=== PATIENT | male | born 1935 | race Caucasian/White ===

== ENCOUNTER 2019-12-08 11:24 | Emergency (ER) | payer MEDICARE, OTHER ==
[2019-12-08 12:05] VITALS: BP 131/72; PULSE 58
[2019-12-08] MEDS ORDERED: Iopamidol 612 MG/ML 100 ML Bottle IVPUSH ONE (12:54)
--- NOTE | 2019-12-08 13:41 | EDM.PDOC ---
ED HPI GENERAL MEDICAL PROBLEM - General Chief Complaint: Eye Problems Stated Complaint: INFECTION OR ALLERGIC REACTION Time Seen by Provider: 12/08/19 13:39 Source of Information: Reports: Patient, RN, RN Notes Reviewed History Limitations: Reports: No Limitations - History of Present Illness INITIAL COMMENTS - FREE TEXT/NARRATIVE: Patient presents to the ED via personal vehicle with complaints of left eye swelling. Per the patient the swelling was present when he woke up on Friday12/06/19; he did not go to bed with the swelling. He was seen in clinic by Dr. Quinonez last Friday12/06/19 and was instructed to take Benadryl and follow up with his take away attendant. He attest to seeing his take away attendant today 12/08/19, who instructed him to come to the ED today for possible ocular cellulitis. The patient states the swelling to his eye has progressively worsened since Friday morning to the point he is unable to see out of the eye. He does attest to yellow drainage from the eye. He denies pain to the area. He denies nasal or ear pain/drainage/pressure. Other than the aforementioned Benadryl he has not taken any medications for this problem. - Related Data Allergies Allergy/AdvReac Type Severity Reaction Status Date / Time No Known Allergies Allergy Verified 03/15/15 11:07 Home Meds: Home Meds Acetaminophen [Mapap] 2 tab PO Q6H PRN 03/02/15 [History] Aspirin [Halfprin] 1 tab PO DAILY 03/02/15 [History] Clobetasol Propionate/Emoll [Temovate Emollient 0.05%] 1 applic TOP DAILY 03/02/15 [History] Ergocalciferol (Vitamin D2) [Vitamin D2] 1 cap PO ASDIRECTED 03/02/15 [History] Propranolol [Inderal] 1 tab PO DAILY 03/02/15 [History] Past Medical History HEENT History: Reports: Cataract, Impaired Vision, Other (See Below) Other HEENT History: NASAL SEPTAL DEVIATION; TINNITUS Cardiovascular History: Reports: CAD, Hypertension, PVD Gastrointestinal History: Reports: Diverticulosis, Hemorrhoids, Other (See Below) Other Gastrointestinal History: VENTRAL HERNIA Genitourinary History: Reports: BPH Musculoskeletal History: Reports: Back Pain, Chronic, Fibromyalgia, Gout, Other (See Below) Other Musculoskeletal History: DEGENERATIVE JOINT DISEASE Neurological History: Reports: None Psychiatric History: Reports: Anxiety Endocrine/Metabolic History: Reports: Vitamin D Deficiency Hematologic History: Reports: Other (See Below) Other Hematologic History: HYPERURICEMIA Immunologic History: Reports: None Oncologic (Cancer) History: Reports: None Dermatologic History: Reports: Other (See Below) Other Dermatologic History: KERATOTIC SKIN LESIONS - Past Surgical History HEENT Surgical History: Reports: Cataract Surgery, Eye Surgery GI Surgical History: Reports: Colonoscopy, EGD, Hernia, Inguinal Dermatological Surgical History: Reports: Other (See Below) ED ROS GENERAL - Review of Systems Review Of Systems: Comprehensive ROS is negative, except as noted in HPI. ED EXAM GENERAL W FULL EYE - Physical Exam Exam: See Below Exam Limited By: No Limitations General Appearance: Alert, WD/WN, No Apparent Distress Eye Exam: Left Eye: EOMI (SONA left d/t swelling), Normal Inspection (SONA left d/t swelling), Periorbital Changes (Significant swelling and edema), PERRL (SONA left d/t swelling) Eyelids: Right: Normal Appearance, Left: Edema, Erythema Conjunctiva & Sclera: Left: Other (SONA to swelling) Cornea Exam: Left: Other (SONA d/t swelling) Pupillary Size: Right: 3 mm Pupillary Reaction: Right: Brisk Ears: Normal External Exam, Normal Canal, Hearing Grossly Normal, Normal TMs Nose: Normal Inspection, Normal Mucosa, No Blood Neurological: Alert, Oriented, CN II-XII Intact Skin Exam: Warm, Dry, Intact, Normal Color, No Rash Course - Vital Signs Last Recorded V/S: Last Vital Signs Temp 98.5 F 12/08/19 12:03 Pulse 58 L 12/08/19 12:03 Resp 18 12/08/19 12:03 BP 131/72 12/08/19 12:03 Pulse Ox 100 12/08/19 12:03 - Orders/Labs/Meds Orders: Active Orders 24 hr Category Date Time Status CULTURE BLOOD [BC] Stat Lab 12/08/19 13:10 Received Labs: Laboratory Tests 12/08/19 12/08/19 12/08/19 Range/Units 13:10 13:10 13:10 WBC 9.6 (5.0-10.0) 10^3/uL RBC 3.97 L (4.6-6.2) 10^6/uL Hgb 12.8 L (14.0-18.0) g/dL Hct 38.5 L (40.0-54.0) % MCV 97.0 (80-100) fL MCH 32.2 (27.0-34.0) pg MCHC 33.2 (33.0-35.0) g/dL Plt Count 163 (150-450) 10^3/uL Neut % (Auto) 62.3 (42.2-75.2) % Lymph % (Auto) 13.9 L (20.5-50.1) % [place] % (Auto) 18.5 H (2-8) % Eos % (Auto) 5.2 H (1.0-3.0) % Baso % (Auto) 0.1 (0.0-1.0) % Sodium 140 (136-145) mmol/L Potassium 4.4 (3.5-5.1) mmol/L Chloride 105 (98-107) mmol/L Carbon Dioxide 28 (21-32) mmol/L Anion Gap 11.4 (7-13) mEq/L BUN 17 (7-18) mg/dL Creatinine 0.86 (0.70-1.30) mg/dL Est Cr Clr Drug Dosing 60.76 mL/min Estimated GFR (MDRD) > 60 BUN/Creatinine Ratio 19.8 (No establ ref range) Glucose 87 (74-99) mg/dL Lactic Acid 1.3 (0.4-2.0) mmol/L Calcium 8.5 (8.5-10.1) mg/dL Total Bilirubin 0.9 (0.2-1.0) mg/dL AST 18 (15-37) U/L ALT 18 (16-63) U/L Alkaline Phosphatase 68 (46-116) U/L Total Protein 6.3 L (6.4-8.2) g/dL Albumin 3.3 L (3.4-5.0) g/dL Globulin 3.0 Albumin/Globulin Ratio 1.10 Meds: Medications Discontinued Medications Generic Name Dose Route Start Last Admin Trade Name Freq PRN Reason Stop Dose Admin Ceftriaxone Sodium 1 gm 12/08/19 14:54 12/08/19 15:31 Rocephin IM 12/08/19 14:55 1 gm ONETIME ONE Administration Iopamidol 100 ml 12/08/19 12:54 12/08/19 14:13 Isovue-300 (61%) IVPUSH 12/08/19 12:55 100 ml ONETIME ONE Administration Lidocaine HCl Confirm 12/08/19 15:09 12/08/19 15:31 Xylocaine-Mpf 1% Administered 12/08/19 15:10 30 ml Dose Administration 30 ml .ROUTE .STK-MED ONE Lidocaine HCl 30 ml 12/08/19 15:18 12/08/19 15:32 Xylocaine-Mpf 1% INJECT 12/08/19 15:19 Not Given ONETIME ONE Departure - Departure Time of Disposition: 15:52 Disposition: Home, Self-Care 01 Condition: Good Clinical Impression: Orbital cellulitis on left - Discharge Information *PRESCRIPTION DRUG MONITORING PROGRAM REVIEWED*: Not Applicable *COPY OF PRESCRIPTION DRUG MONITORING REPORT IN PATIENT JULIA: Not Applicable Forms: ED Department Discharge Additional Instructions: Rx: Keflex Take all prescribed medications until gone. Follow up with primary care facility on Friday - Friday at the latest. Sepsis Event Note (ED) - Evaluation Sepsis Screening Result: No Definite Risk - Focused Exam Vital Signs: Vital Signs Temp Pulse Resp BP Pulse Ox 12/08/19 12:03 98.5 F 58 L 18 131/72 100
[2019-12-08 13:44] LABS: ANION GAP 11.4 mEq/L (7-13); CHLORIDE,CL 105 mmol/L (98-107); SODIUM,NA 140 mmol/L (136-145)
--- NOTE | 2019-12-08 14:37 | CT ---
EXAMINATION: Max Facial Sinus w Cont SEX: Male AGE: 83 years CLINICAL HISTORY: 83-year-old hypertensive 160 pound male with left orbital cellulitis. No known trauma. Scan technique: Volume acquisition of data emergency unenhanced CT scan of the facial bones obtained during the intravenous administration 100 cc nonionic Isovue contrast (3 cc/s via injector) while patient was lying supine on the Siemens multi slice scanner [place], [place]. All data archived in the PACS system for storage, reformatting axial/sagittal/coronal planes and study (bone/soft tissue windows). Interpretation: Abnormal. 1. *Pronounced periorbital soft tissue swelling (STS), on the left, that does not appear to extend into the ipsilateral orbit, however the inflammatory process involves both the upper and lower lids on the left (air beneath the lower lid versus early abscess formation). No inflammatory changes of the underlying bone. 2. No foreign bodies. 3. Symmetric normal-appearing optic globes and retrobulbar optic nerves. 4. Symmetric clear pneumatization of the paranasal sinuses i.e. no mucoperiosteal inflammation or pathologic air-fluid levels. Nasal septum midline. Nonedematous nasal turbinates. 5. Incidentally noted osseous midline lesion dropping down from the hard palate (osteoma?). 6. Symmetric satisfactory dental occlusion. Oropharynx unremarkable. Normal TMJs. 7. Reactive arthritic changes and disc disease C-spine. CONCLUSION: Extensive, left sided, periorbital cellulitis.
[2019-12-08] MEDS ORDERED: cefTRIAXone 1 GM Vial IM ONE (14:54)
[2019-12-08] MEDS ORDERED: Lidocaine 1% 30 ML SDV ONE (15:09)
[2019-12-08] MEDS ORDERED: Lidocaine 1% 30 ML SDV INJECT ONE (15:18)
== END 2019-12-08 16:03 | disposition home or self-care (01) ==
LOC: DL.ED 11:24
DX: H05.012 Cellulitis of left orbit (principal); F41.9 Anxiety disorder, unspecified; I10 Essential (primary) hypertension; I25.10 Atherosclerotic heart disease of native coronary artery without angina pectoris; Z79.82 Long term (current) use of aspirin; Z79.899 Other long term (current) drug therapy
CPT/HCPCS: 36415; 70487; 80053; 83605; 85025; 87040; 96372; 99284; J0696; J2001; Q9967